=== PATIENT | male | born 1945 | race Caucasian/White ===

== ENCOUNTER 2017-07-21 10:45 | Emergency (ER) | payer OTHER ==
[~2017-07-21] VITALS: Ht 182.9 cm; Wt 88.2 kg
[~2017-07-21 10:45] MED LIST: FLUT1SPR5 EACH NARE; NYST0.1P TOPICAL
[2017-07-21 10:55] VITALS: BP 140/72; PULSE 88; RESP 18; TEMP 97.9; O2SAT 98
[2017-07-21] MEDS ORDERED: TETANUS/DIPHTHERIA TOXOID ADULT 0.5 ML VIAL IM ONE (11:15)
[2017-07-21] MEDS ORDERED: POVIDONE IODINE 10% OINT 30 GM TUBE TOPICAL ONE (11:15)
--- NOTE | 2017-07-21 11:32 | PD ---
HPI Chief Complaint: Laceration/Skin Injury Time Seen by Provider: 11:12 Travel History International Travel<30 days: No Contact w/Intl Traveler<30days: No Traveled to known affect area: No History of Present Illness HPI 72-year-old male presents to the emergency room for evaluation of left second finger laceration that occurred just prior to arrival. Patient was cutting a bag of chicken open when the knife slipped and cut the tip of his finger off. He applied pressure. States it continued to bleed so he came to the emergency room. Reports mild pain. No loss of range of motion. Unknown last tetanus. Patient denies chronic medical conditions or daily medications. PFSH Past Medical History Diminished Hearing: No Tetanus Vaccination: Unknown Influenza Vaccination: Yes ?: Not Past Surgical History Oral Surgery: Yes Social History Alcohol Use: Yes (occ) Tobacco Use: No Substance Use: No Allergies-Medications (Allergen,Severity, Reaction): Coded Allergies: No Known Allergies (Unverified , 06/17/17) Reported Meds & Prescriptions Reported Meds & Active Scripts Active Flonase Nasal [place] (Fluticasone Nasal [place]) 50 Mcg/Act [place] 50 Mcg EACH NARE BID [place] (Nystatin (Topical)) 100,000 Unit/Gm Pow 1 Applic TOPICAL Q12HR Review of Systems Except as stated in HPI: all other systems reviewed are Neg Physical Exam Narrative GENERAL: Well-nourished, well-developed male in no acute distress. Afebrile. Ambulatory. SKIN: Focused skin assessment warm/dry. There is a 1 cm x 0.5 cm avulsion to the left distal second finger. Wound not bleeding on exam. HEAD: Normocephalic. EYES: No scleral icterus. No injection or drainage. NECK: Supple, trachea midline. No JVD or lymphadenopathy. CARDIOVASCULAR: Regular rate and rhythm without murmurs, gallops, or rubs. RESPIRATORY: Breath sounds equal bilaterally. No accessory muscle use. MUSCULOSKELETAL: No cyanosis, or edema. Full range of motion of the left hand. Data Data Last Documented VS Vital Signs Date Time Temp Pulse Resp B/P (MAP) Pulse Ox O2 Delivery O2 Flow Rate FiO2 07/21/17 10:55 97.9 88 18 140/72 (94) 98 Orders Orders Tetanus/Diphtheria Tox Adult (Tetanus/Di (07/21/17 11:15) Povidone Iodine 10% Oint (Betadine 10% O (07/21/17 11:15) [facility] Medical Decision Making Medical Screen Exam Complete: Yes Emergency Medical Condition: Yes Medical Record Reviewed: Yes Differential Diagnosis Laceration, avulsion, contusion, abrasion Narrative Course 72-year-old male presents to the emergency room for evaluation of a laceration to his left second finger that occurred just prior to arrival. Patient accidentally cut himself with a knife while trying to open a bag of chicken. Physical exam reveals a 1 x 0.5 cm skin avulsion to the left second distal pulp. It is nonbleeding on exam. Patient washed his hand with soap and water while in the emergency room. Tetanus was updated. A pressure dressing of povidone iodine, Xeroform, nonstick, and cling were applied. Patient was given wound care instructions for home and told to change dressing daily. Given strict return precautions for evidence of infection. Told to follow up with hand surgeon for skin graft if desired. He understands and agrees to plan. Diagnosis Primary Impression: Avulsion of skin of finger without complication Qualified Codes: S61.209A - Unspecified open wound of unspecified finger without damage to nail, initial encounter Referrals: Primary Care Physician Additional Instructions: Keep wound clean and dry. Dressing changes daily as shown. Take Tylenol as directed, as needed for pain. Follow-up with a primary care physician. Return to the emergency room for worsening symptoms, as discussed. Disposition: 01 DISCHARGE HOME Condition: Stable Marychuy Pike Jul 21, 2017 11:32
[2017-07-22] MEDS ORDERED: INFL1INJ52 IM (12:07)
== END 2017-07-21 11:37 | disposition home or self-care (01) ==
LOC: PHEFT 10:45
DX: S61.201A Unspecified open wound of left index finger without damage to nail, initial encounter (principal); Z23 Encounter for immunization; W26.0XXA Contact with knife, initial encounter; Y93.G1 Activity, food preparation and clean up
CPT/HCPCS: 90471; 90714

== ENCOUNTER 2018-01-06 16:14 | Emergency (ER) | payer OTHER ==
[~2018-01-06] VITALS: Ht 182.9 cm; Wt 86.0 kg
[~2018-01-06 16:14] MED LIST changes: -NYST0.1P TOPICAL
[2018-01-06 16:18] VITALS: BP 145/65; PULSE 66; RESP 17; TEMP 97.8; O2SAT 97
--- NOTE | 2018-01-06 16:40 | PD ---
HPI Chief Complaint: Skin Problem Time Seen by Provider: 16:28 Travel History International Travel<30 days: No Contact w/Intl Traveler<30days: No Traveled to known affect area: No History of Present Illness HPI 72-year-old male presents to the ED for evaluation of 2 day history of pruritic rash on bilateral lower extremities. Gradual onset. Patient denies fever, chills, nausea, vomiting, limitations to range of motion of the extremities, numbness, tingling, weakness of the extremities. He states that he was camping in [facility] over the past few days with a large group. No one else in the group reports these similar symptoms. He is not diabetic. No treatment attempted at home. PFSH Past Medical History Diminished Hearing: No ?: Not Past Surgical History Oral Surgery: Yes Social History Alcohol Use: Yes (occ) Tobacco Use: No Substance Use: No Allergies-Medications (Allergen,Severity, Reaction): Coded Allergies: No Known Allergies (Verified Adverse Reaction, Unknown, 01/06/18) Reported Meds & Prescriptions Reported Meds & Active Scripts Active Vistaril (Hydroxyzine Pamoate) 50 Mg Cap 50 Mg PO TID Keflex (Cephalexin) 500 Mg Cap 500 Mg PO Q6H 7 Days [place]-Jose M Topical (Hydrocortisone (Topical)) 2.5% Cream 1 Applic TOPICAL BID Flonase Nasal [place] (Fluticasone Nasal [place]) 50 Mcg/Act [place] 50 Mcg EACH NARE BID Review of Systems Except as stated in HPI: all other systems reviewed are Neg Physical Exam Narrative GENERAL: Well-nourished, well-developed white male in no acute distress. SKIN: Focused skin assessment warm/dry. Patchy, macular papular, erythematous rash extremity most densely on the anterior and medial aspects of bilateral lower legs, left greater than right. Trace edema on the left. HEAD: Normocephalic. EYES: No scleral icterus. No injection or drainage. NECK: Supple, trachea midline. No JVD or lymphadenopathy. CARDIOVASCULAR: Regular rate and rhythm without murmurs, gallops, or rubs. RESPIRATORY: Breath sounds equal bilaterally. No accessory muscle use. GASTROINTESTINAL: Abdomen soft, non-tender, nondistended. MUSCULOSKELETAL: No cyanosis, or edema. 2+ DP pulses bilaterally. Patient retains full, active, painless ROM, bilateral lower extremities. BACK: Nontender without obvious deformity. No CVA tenderness. Data Data Last Documented VS Vital Signs Date Time Temp Pulse Resp B/P (MAP) Pulse Ox O2 Delivery O2 Flow Rate FiO2 01/06/18 16:18 97.8 66 17 145/65 (91) 97 Orders Orders Cephalexin (Keflex) (01/06/18 16:45) Hydroxyzine Pamoate (Vistaril) (01/06/18 16:45) Ed Discharge Order (01/06/18 16:45) [facility] Medical Decision Making Medical Screen Exam Complete: Yes Emergency Medical Condition: Yes Differential Diagnosis Contact dermatitis versus allergic reaction versus staph infection versus cellulitis versus other Narrative Course 72-year-old male presents to the ED for evaluation of 2 day history of pruritic rash on bilateral lower extremities. He states that he was camping in [facility] over the past few days with a large group. No one else in the group reports these similar symptoms. He is not diabetic. Vitals reviewed. On exam the patient has a maculopapular, somewhat confluent blanching, erythematous rash of the lower extremities. Dentist on the anterior and medial aspects of the leg. Mild edema of the left leg. Rash is worse on the left. I suspect this could be contact dermatitis, possible staph infection. We'll treat for both. Patient was prescribed Keflex, topical cortisone, Vistaril. Instructed take the medications as prescribed, return for worsening symptoms. He is stable and discharged home. Diagnosis Primary Impression: Rash and nonspecific skin eruption Referrals: Primary Care Physician Patient Instructions: Cellulitis (ED), Contact Dermatitis (ED), General Instructions Additional Instructions: Rest, hydrate. Keep the rash clean and dry. Avoid itching as possible. Begin antibiotics today and take them until her refill is gone. Vistaril as prescribed, as needed to reduce itching. Cortizone cream applied twice a day as prescribed. THIN LAYER!! Follow-up with primary care provider. Return to the ED for worsening symptoms or any urgent or emergent medical condition. Med/Other Pt SpecificInfo: Prescription(s) given Scripts Hydroxyzine Pamoate (Vistaril) 50 Mg Cap 50 MG PO TID for Itching, #12 CAP 0 Refills Prov: Miroslava Fuentes MD 01/06/18 Cephalexin (Keflex) 500 Mg Cap 500 MG PO Q6H for Infection for 7 Days, #28 CAP 0 Refills Prov: Miroslava Fuentes MD 01/06/18 Hydrocortisone (Topical) (Ala-Jose M Topical) 2.5% Cream 1 APPLIC TOPICAL BID for Inflammation, #1 TUBE 0 Refills Prov: Miroslava Fuentes MD 01/06/18 Disposition: 01 DISCHARGE HOME Condition: Stable Cassandra Ellis Jan 06, 2018 16:40
[2018-01-06] MEDS ORDERED: HYDR-4204 TOPICAL (16:43)
[2018-01-06] MEDS ORDERED: CEPH-460 PO (16:44)
[2018-01-06] MEDS ORDERED: VIST50CA PO (16:44)
[2018-01-06] MEDS ORDERED: CEPHALEXIN MONOHYDRATE 500 MG CAP PO ONE (16:45)
== END 2018-01-06 17:10 | disposition home or self-care (01) ==
LOC: PHEFT 16:14
DX: R21 Rash and other nonspecific skin eruption (principal)
CPT/HCPCS: 99283